=== PATIENT | female | born 1985 | race Caucasian/White ===

== ENCOUNTER 2024-02-29 11:47 | Inpatient (IN) | payer BC ==
[2024-03-06] MEDS ORDERED: HYDROcodone/Acetaminophen 5/325 mg Tablet PO PRN ×2 (20:21)
[2024-03-06] MEDS ORDERED: Ondansetron PF 4 MG/2 ML Vial IVP PRN ×2 (20:21→22:35)
[2024-03-06] MEDS ORDERED: Promethazine HCl 25 MG/ML VIAL IM PRN ×2 (20:21→22:35)
[2024-03-06] MEDS ORDERED: Lidocaine 1% (PF) 30 ML VIAL SC PRN (20:21)
[2024-03-06] MEDS ORDERED: hydrALAZINE 20 MG/ML VIAL SLOW IVP PRN (20:21)
[2024-03-06] MEDS ORDERED: fentaNYL 50 mcg/mL 1 mL Vial SLOW IVP PRN (20:21)
[2024-03-06] MEDS ORDERED: Ibuprofen 800 MG TAB PO PRN (20:21)
[2024-03-06] MEDS ORDERED: Oxytocin 30 units/NS 500 ML 500 ML IV SCH ×3 (20:30)
[2024-03-06] MEDS ORDERED: Lactated Ringer's 1,000 ML IV SCH (20:30)
[2024-03-06] MEDS ORDERED: fentaNYL/Ropivacaine Epidural 100 ML ONE ×2 (21:16→21:25)
[2024-03-06 21:21] LABS: Hematocrit 35.9 % (34.9-44.5); Hemoglobin 12.5 g/dL (12.0-15.5); Mean Corpuscular HGB CONC 34.8 g/dL (32.0-36.0); Mean Corpuscular Hemoglobin 31.3 pg (27.0-33.0); Mean Platelet Volume 10.3 fL (7.4-10.4); Platelet Count 210 10x3/uL (150-450); RBC Distribution Width 12.8 % (11.5-14.5); Red Blood Cell (RBC) Count 3.99 10x6/uL (3.90-5.03); White Blood Cell (WBC) Count 11.1 10x3/uL (3.5-10.5)
[2024-03-06 21:34] VITALS: BMI 29.4
[2024-03-06 21:42] LABS: Fetal Membranes Rupture RUPTURE DETECTED (No Rupture)
[2024-03-06] MEDS ORDERED: diphenhydrAMINE 50 MG/ML VIAL IVP PRN (22:35)
[2024-03-06] MEDS ORDERED: Lactated Ringer's 500 ML IV PRN (22:35)
[2024-03-06] MEDS ORDERED: ePHEDrine Sulfate 50 MG/10 ML VIAL SLOW IVP PRN (22:35)
[2024-03-06] MEDS ORDERED: Acetaminophen 325 MG TAB PO PRN (22:35)
[2024-03-06] MEDS ORDERED: Naloxone HCl 0.4 mg/ml Vial IVP PRN ×2 (22:35)
[2024-03-06] MEDS ORDERED: fentaNYL 2 mcg/Ropivacaine 0.2% Epidural 100 ML CADD EPIDURAL SCH (22:45)
[2024-03-06] MEDS ORDERED: Communication Order-Pharmacy FS SCH (22:45)
[2024-03-06 22:49] LABS: HBsAg Index 0.13 S/CO (0-0.99); Hep B Surf Ag - L&D Non-Reactive S/CO (NonReactive)
[2024-03-06 22:53] LABS: Syphilis Antibody Nonreactive (Nonreactive); Syphilis Antibody Index 0.17 S/CO (<1.00 Non-Reactive)
[2024-03-07] MEDS ORDERED: Misoprostol 200 MCG TAB VAG PRN (03:32)
[2024-03-07] MEDS ORDERED: Boostrix 0.5 ML (Tdap) VIAL (>/=7 yrs of age) IM ONE (03:32)
[2024-03-07] MEDS ORDERED: Preparation H Ointment 28 GM TUBE PR PRN (03:32)
[2024-03-07] MEDS ORDERED: Milk Of Magnesia 30 ML UDCUP PO PRN (03:32)
[2024-03-07] MEDS ORDERED: Lanolin Ointment 7 GM TUBE TOP PRN (03:32)
[2024-03-07] MEDS ORDERED: Bisacodyl 10 MG SUPP PR PRN (03:32)
[2024-03-07] MEDS ORDERED: hydrALAZINE 20 MG/ML VIAL SLOW IVP PRN (03:32)
[2024-03-07] MEDS: Ibuprofen 800 MG TAB PO SCH (05:09)
[2024-03-07] MEDS: Ferrous Sulfate 325 MG TAB PO SCH (07:30)
[2024-03-07] MEDS: Docusate 100 MG CAP PO SCH (08:35)
[2024-03-07] MEDS: Prenatal Vitamin 1 TAB PO SCH (08:35)
[2024-03-07] MEDS: Moisturizing Cream (Eucerin) 113 GM JAR TOP PRN (21:24)
[2024-03-08 08:23] VITALS: BP 113/61; TEMP 98.2
[2024-03-08] MEDS: Hydrocortisone 1% Cream 30 GM TUBE TOP SCH (09:54)
== END 2024-03-08 15:50 | disposition home or self-care (01) | DRG 807 ==
LOC: CSHLD 03-06 20:10 → CSHPP 03-07 02:18
PROVIDERS: ADMIT Obstetrics & Gynecology; ATTEND Obstetrics & Gynecology
PROC: 10E0XZZ Delivery of Products of Conception, External Approach (ICD-10-PCS; principal; 2024-03-06)
PROC: 0UQMXZZ Repair Vulva, External Approach (ICD-10-PCS; 2024-03-06)
DX: O42.02 Full-term premature rupture of membranes, onset of labor within 24 hours of rupture (principal); Z37.0 Single live birth; Z3A.40 40 weeks gestation of pregnancy; O48.0 Post-term pregnancy; O99.284 Endocrine, nutritional and metabolic diseases complicating childbirth; Z79.899 Other long term (current) drug therapy; E03.9 Hypothyroidism, unspecified; Z79.82 Long term (current) use of aspirin; O71.82 Other specified trauma to perineum and vulva; O09.523 Supervision of elderly multigravida, third trimester; O69.81X0 Labor and delivery complicated by cord around neck, without compression, not applicable or unspecified; O99.72 Diseases of the skin and subcutaneous tissue complicating childbirth; L25.9 Unspecified contact dermatitis, unspecified cause
CPT/HCPCS: 51702; 84112; 85027; 86780; 86850; 86900; 86901; 87340; 99285